=== PATIENT | female | born 1980 | race African-American/Black ===

== ENCOUNTER 2016-05-02 10:56 | Emergency (ER) | payer OTHER ==
[~2016-05-02 10:56] MED LIST: IBUPROFEN800 MG PO; NYQUIL; TYLOX 5/500 CAP1 CAP PO
[2016-05-18] MEDS ORDERED: PHENERGAN25 M1 PO (06:31)
== END 2016-05-02 11:03 | disposition home or self-care (01) ==
LOC: CFTX 10:56
DX: B37.0 Candidal stomatitis (principal); Z87.891 Personal history of nicotine dependence
CPT/HCPCS: 99282

== ENCOUNTER 2016-05-07 21:33 | Observation (INO) | payer OTHER ==
--- NOTE | ~2016-05-07 | US84 ---
[id number] [facility] [address] [place], [place] [address] [id number] I MR#: [id number] Acc #: [id number] NAME: ADA JOHNSON : 1980 SEX: F STUDY DATE/TIME: 05/08/2016 9:46 UNIT: C2A ROOM: 227 STUDY DESCRIPTION: US LE Veins Complete Renato Stdy Attending Physician: Durga Ledbetter M.D. Ordering Physician: Suzanne Echeverria M.D. Primary Care Physician: No Primary Care Physician MEDICAL IMAGING REPORT This report is preliminary unless electronic signature is present EXAM Lower extremity venous ultrasound bilateral complete study 05/08/2016 HISTORY Bilateral leg pain, brain aneurysm surgery 04/12/2016, pain in legs ever since from knee down. No history of DVT, has been on blood thinners since surgery. TECHNIQUE Venous ultrasound examination of both lower extremities was performed using grayscale, spectral Doppler and color flow Doppler imaging. FINDINGS The examination is negative. There is no evidence of deep venous thrombus from the groin to the lower calf bilaterally. Visualized greater saphenous veins are also patent. IMPRESSION Negative examination. No evidence of lower extremity deep venous thrombosis. Dictated by... Samm Lomeli M.D. THIS IS AN ELECTRONICALLY VERIFIED REPORT Samm Lomeli M.D. at 05/09/2016 5:25 PM Shaq TD: 05/08/2016 16:01 JOB #: [id number] MEDICAL IMAGING REPORT COPY
--- NOTE | ~2016-05-07 | HP ---
Unit #: [id number] #: [id number] Patient: ADA JOHNSON [id number] [address] [place], [place] [address] [id number] I MR#: [id number] NAME: ADA JOHNSON. ROOM: 43239 Age: 36 Sex: F Admission Date: 05/08/2016 : 1980 Attending Physician: Suzanne Echeverria M.D. Primary Care Physician: No Primary Care Physician HISTORY AND PHYSICAL CHIEF COMPLAINT Symptomatic microcytic anemia. HISTORY This pleasant 36-year-old female, recently treated for a right internal carotid aneurysm on 04/12/2016 by transarterial transcatheter embolization, is admitted for symptomatic anemia. Again, the patient underwent a transarterial transcatheter embolization of her right internal carotid aneurysm at [facility] on 04/12/2016. She was afterwards placed on aspirin, Plavix and Decadron. She developed increasing headaches off the Decadron and the Decadron was restarted. Over the past three to four days she has been experiencing lower extremity swelling with discomfort in the lower extremities, left greater than right, along with complaints of arm pain. Notes increasing weakness and fatigue. She presents to this emergency department with a white blood count of 25 but she is taking Decadron, and denies fevers, sweats or chills. Also noted to have a hematocrit of 25.3 down from 29.8 10/2015. Microcytic indices. The patient does have heavy menstrual periods, her last menses was 04/09/2016. Has been straining a bit at stool and did notice a little bit of blood after wiping herself. She currently is heme negative in the ER. Plans are to admit the patient due to increasing weakness, fatigue with worsening anemia. PAST MEDICAL HISTORY 1. 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 Patient underwent transarterial transcatheter embolization of her right internal carotid aneurysm 04/12/2016 at [facility]. 2. Headaches. 3. GERD. 4. BTL. ALLERGIES No known drug allergies. HOME MEDICATIONS 1. Decadron - I believe patient takes 2 mg, three tablets twice a day. 2. Plavix daily. 3. Aspirin daily. 4. P.r.n. Phenergan. 5. Protonix daily. 6. Nystatin swish and swallow, recently started for thrush. Unit #: [id number] #: [id number] Patient: ADA JOHNSON FAMILY HISTORY Aneurysms, and gastric CA. SOCIAL HISTORY The patient lives with her children. She is accompanied by her mother and boyfriend. She no longer smokes, seldom drinks alcohol. REVIEW OF SYSTEMS Notable for chronic headaches, pain in the arms and legs, aneurysm treated please see above details, GERD, right third nerve palsy, fatigue, weakness. All other systems were reviewed and are negative. PHYSICAL EXAMINATION GENERAL APPEARANCE: Pleasant, mildly obese female who currently is in no acute distress. VITAL SIGNS: Temperature 97.5, pulse 99, respirations 18, blood pressure 111/65, O2 saturation 100% on room air. HEENT: The patient's right pupil is dilated compared to the left. She has ptosis on the right and is unable to abduct or adduct the right eye. Pharynx is benign. NECK: Supple without adenopathy or thyromegaly. CHEST: Clear. CARDIAC: Normal S1 and S2 without S3, S4 or murmur. ABDOMEN: Bowel sounds are present. No hepatosplenomegaly, tenderness or masses. EXTREMITIES: Without clubbing, cyanosis or edema. Pedal pulses are present. No splinter hemorrhages noted over the fingernail beds. Negative Homans sign. RECTAL EXAMINATION: Heme negative in the ER. NEUROLOGIC EXAM: The patient is awake, alert, oriented. Her cranial nerves reveal a third nerve palsy. She has equal strength throughout. DIAGNOSTIC STUDIES LABORATORY: Admission labs - hematocrit is 25.3, down from a hematocrit of 29.8 last year. White blood count is 25.9, MCV is 77.6. Cardiac markers are negative. Coags are normal. SMA-12 - glucose 129, BUN 29, sodium 133, chloride is 99, calcium 7.9, albumin is 2.9. Urinalysis - positive nitrates with 2-5 white cells and 4+ bacteria. Only occasional squamous epithelial cell noted. IMAGING: CT scan - no acute disease. Soft tissue mass versus large aneurysm occluded by previous stent. Likely, this represents patient's treated aneurysm. This is in the right middle cranial fossa abutting the cavernous sinus. CARDIOVASCULAR: EKG - normal sinus rhythm, rate 98, normal appearing. ASSESSMENT 1. Symptomatic microcytic anemia, likely related to heavy menstrual periods while on aspirin and Plavix. Patient currently is heme negative on rectal exam. 2. Aneurysm which was treated with transarterial transcatheter embolization Patient has a third nerve palsy and headaches related to a previous aneurysm, currently is taking Decadron, Plavix and Unit #: [id number] #: [id number] Patient: ADA JOHNSON aspirin. 3. Generalized myalgias. 4. Gastroesophageal reflux disease. 5. Leukocytosis, likely related to Decadron. Patient could have a urinary tract infection. PLANS 1. Anemia workup. 2. Transfuse one unit of packed red blood cells. 3. One dose of Rocephin pending urine C and S. 4. Obtain CPK and procalcitonin level along with blood cultures. 5. Venous Dopplers of the legs. 6. SCDS for DVT prophylaxis. Dictated by Suzanne Echeverria M.D. AML/df TD: 05/08/2016 05:13 JOB #: [id number] CC: U L [facility] HISTORY AND PHYSICAL X Suzanne Echeverria MD HISTORY AND PHYSICAL
--- NOTE | ~2016-05-07 | DS ---
Unit #: [id number] #: [id number] Patient: ADA JOHNSON [id number] [address] [place], [place] [address] [id number] MR#: [id number] NAME: ADA JOHNSON. ROOM: 227 Age: 36 Sex: F Admission Date: 05/08/2016 : 1980 Discharge Date: 05/08/2016 Attending Physician: Durga Ledbetter M.D. Primary Care Physician: No Primary Care Physician DISCHARGE SUMMARY DISCHARGE DIAGNOSES 1. Symptomatic anemia status post blood transfusion of 2 units of packed red blood cells. 2. Iron deficiency anemia. Will be recommending to start iron tablet twice daily. 3. Brain aneurysm with recent transarterial transcatheter embolization of the right internal carotid at [facility] on 04/12/16. She will follow up with neurologist next week. 4. Generalized malaise. 5. Gastroesophageal reflux disease. 6. Elevated white blood count without fever, on Decadron. 7. Urinary tract infection. Urine culture is pending. I will follow up with this to ensure Omnicef will be able to cover it. CONSULTANTS None. PROCEDURES None. DIAGNOSTIC STUDIES IMAGING: Head CT without contrast. Impression - No clearly acute findings in the brain. Soft tissue mass in the middle cranial fossa on the right abutting the cavernous sinus may reflect a large aneurysm that has been excluded by a cavernous ICA stent on the right side. This lesion is nonspecific in the absence of more a recent contrast-enhanced comparison. This could reflect a true soft tissue mass such as a meningioma. Comparison with history and any outside imaging recommended. LABS: The patient's labs today consist of BMP with glucose of 179, BUN 29, creatinine 0.8, sodium 133, potassium 4.9, chloride 99, CO2 26, calcium 7.9, total protein 5, albumin 2.9, total bilirubin 0.4, AST 18, ALT 30, alkaline phosphatase 38. CK is 30. BNP is 72. CBC with WBC of 27.6, RBC 3.79, hemoglobin 9.1, hematocrit 29.2, MCV 77, MCH 23.9, MCHC 31.3, RDW 19.3, platelets 363, MPV 7.2. HOSPITAL COURSE The patient is a pleasant 36-year-old female recently treated for right internal carotid aneurysm on 04/12/16 by transarterial transcatheter embolization at [facility]. She was started on aspirin, Plavix and Decadron after that. She had developed increasing headache off the Decadron. Decadron was restarted. Over the past 3-4 days she has been experiencing lower extremity swelling with discomfort in the lower extremities, left greater than right, along with complaints of arm pain, Unit #: [id number] #: [id number] Patient: ADA JOHNSON as well. The patient has noticed increased weakness and fatigue. She was brought to the emergency department where she was found to have a white blood count of 25,000. Denies diarrhea. Again, she has taken Decadron. She denies fevers, chills or sweats. Workup in the emergency department included hematocrit that was 25.3 with microcytic indices. The patient does have heavy menstrual cycles, and her last menses was 04/09/16. She has been straining a bit at stool and did notice a little bit of blood after wiping. In the emergency department, heme was negative. The patient was admitted for increasing weakness and fatigue, likely due to worsening of the anemia. The patient received transfusion of 2 units of packed red blood cells and tells me that her generalized weakness has improved, but the swelling in her arms and legs, although improved, is still there. The patient tells me that her mother has sickle cell trait, but no one in the family has sickle cell anemia. I called hematology, who tells me that the peripheral the final evidence of sickle cell. I told the patient that, therefore, sickle cell crisis is less of a concern, although with her positive family history of sickle cell trait, the patient ought to refer to her primary care physician to do a complete sickle cell screening. She voiced understanding. The patient, at this time, is stable to be discharged. DISCHARGE FOLLOWUP She does have a followup appointment with her primary care physician and neurology next week; she tells me the 13 and 14. I had stressed that she keep this followup appointment, and she can have a repeat CBC there. DISCHARGE CONDITION Stable. DISCHARGE DIET Resume heart healthy diet. ACTIVITIES Resume activities as was prior to hospitalization with ambulating every day. DISCHARGE MEDICATIONS 1. Dexamethasone 6 mg orally b.i.d. as was prior hospitalization. 2. Aspirin 325 mg orally daily. 3. Hydrocodone with acetaminophen 7.5/300 mg 1 tablet q.6 hours as needed for pain. 4. Plavix 75 mg orally daily. 5. Iron supplement 1 tablet b.i.d. 6. Stool softener orally daily. 7. I am also prescribing Omnicef 300 mg orally b.i.d. Dictated by... Pat Pillai PA-C for Anna Thompson/melissa TD: 05/10/2016 08:13 JOB #: [id number] Unit #: [id number] #: [id number] Patient: STACEY JOHNSONLISA Mendenhall DISCHARGE SUMMARY X X DISCHARGE SUMMARY
--- NOTE | ~2016-05-07 | CT71 ---
[facility] A Service of [facility] & [facility] RADIOLOGY TEXT RESULTS PATIENT: ADA JOHNSON LOCATION: C2A 227- : [birth year] UNIT #: [id number] AGE: [address]: Durga Ledbetter MD SEX: F ORDER DR: [id number] [facility] [address] [place], [place] [address] [id number] I MR#: [id number] Acc #: [id number] NAME: ADA JOHNSON. : 1980 SEX: F STUDY DATE/TIME: 05/08/2016 UNIT: C2A ROOM: 227 STUDY DESCRIPTION: CT Head Wo Contrast Attending Physician: Durga Ledbetter M.D. Ordering Physician: Isacc Hunter M.D. Primary Care Physician: Primary Care Physician No MEDICAL IMAGING REPORT This report is preliminary unless electronic signature is present EXAM Head CT on 05/07 at 22:58 INDICATIONS Weakness that started yesterday which is generalized. Patient had brain surgery [address] exam was performed with one or more of the following radiation dose reduction techniques: automatic exposure control, adjustment of mA and/or kV according to patient size, and iterative reconstruction. FINDINGS Axial images were obtained from the base to the vertex without contrast. Comparison is made with 12/02/2087. There is a stent in the right cavernous carotid artery. No skull fractures are seen. There is a 1.9 x 2.1 cm mass in the middle cranial fossa on the right abutting the cavernous sinus. This is presumably an aneurysm that has been excluded by the above-mentioned stent. This is nonspecific. It could also reflect a soft tissue mass such as a meningioma. Comparison with history of outside prior imaging is recommended. This could be followed up with contrast-enhanced MRI or CT if needed. Ventricular size and configuration are normal. There is no evidence of acute infarct or hemorrhage. IMPRESSION No clearly acute findings in the brain. Soft tissue mass in the middle cranial fossa on the right abutting the cavernous sinus may reflect a large aneurysm that has been excluded by a cavernous ICA stent on the right side. This lesion is nonspecific in the absence of more recent contrast enhanced comparisons. This could also reflect a true soft tissue STS. [facility] A Service of [facility] & [facility] RADIOLOGY TEXT RESULTS PATIENT: ADA JOHNSON LOCATION: A 227-01 : [birth year] UNIT #: [id number] AGE: [address]: Durga Ledbetter MD SEX: F ORDER DR: mass such as a meningioma. Comparison with history and any outside imaging recommended. This could be further characterized with contrast enhanced head CT or MRI if deemed clinically appropriate. Dictated by... Indra King Jr., M.D. THIS IS AN ELECTRONICALLY VERIFIED REPORT Indra King Jr., M.D. at 05/08/2016 12:35 PM JUDY/russell TD: 05/08/2016 11:51 JOB #: [id number] MEDICAL IMAGING REPORT COPY
--- NOTE | ~2016-05-07 | EKG ---
PATIENT: ADA JOHNSON UNIT #: [id number] Ventricular Rate: 98 BPM Atrial Rate: 98 BPM P-R Interval: 130 ms QRS Duration: 66 ms Q-T Interval: 320 ms QTC Calculation(Bezet): 408 ms P [place]: 55 degrees Calculated R [place]: 21 degrees Calculated T [place]: 29 degrees Diagnosis Line: Normal sinus rhythm Diagnosis Line: Normal ECG Diagnosis Line: No previous ECGs available Diagnosis Line: Confirmed by WILFREDO KIM MD ([id number]) on Diagnosis Line: 05/09/2016 4:05:48 PM INTERPRETING MD: JUDY PIERRE
[2016-05-07 21:22] LABS: BASOPHIL% 0.1 % (0-2.5); HEMATOCRIT 25.3 % (35.0-45.0); HEMOGLOBIN 7.5 gm/dL (12.0-16.0); LYMPHOCYTE# 1.7 X10e3 (1.0-3.5); LYMPHOCYTE% 6.6 % (17.0-45.0); MEAN CELL VOLUME 77.6 FL (83-96); MEAN CORPUSCULAR HEMOGLOBIN 23.1 PG (28-34); MEAN CORPUSCULAR HGB CONC 29.8 g/dL (30-36); MONOCYTE# 1.2 X10e3 (0-1.0); MONOCYTE% 4.4 % (3.0-12.0); NEUTROPHIL% 88.9 % (40-75); PLATELET COUNT 367 X10e3 (140-420); RED BLOOD COUNT 3.26 X10e (3.90-5.30); RED CELL DISTRIBUTION WIDTH 19.6 % (11.0-15.5); WHITE BLOOD COUNT 25.9 X10e3 (4.0-10.5)
[2016-05-07 21:23] LABS: DIFF IND YES
[2016-05-07 21:44] LABS: BLOOD UREA NITROGEN 29 mg/dL (9-23); BUN/CREATININE RATIO 36.25; CALCIUM SERUM 7.9 mg/dL (8.4-10.2); CARBON DIOXIDE 26 mmol/L (22-31); CHLORIDE 99 mmol/L (100-111); CPK (CREATINE PHOSPHOKINASE) 26 IU/L (26-140); CREATININE SERUM 0.8 mg/dL (0.6-1.4); GLOM FILT RATE Estimated ABOVE60 mL/min (>60); GLUCOSE FASTING 129 mg/dL (70-110); POTASSIUM 4.7 mmol/L (3.5-5.1); SODIUM 133 mmol/L (135-145)
[2016-05-07 21:48] LABS: URINE SOURCE CLEAN CATCH
[2016-05-07 22:04] LABS: URINE APPEARANCE CLEAR; URINE BILIRUBIN NEG (NEG); URINE BLOOD 1+ (NEG); URINE COLOR YELLOW; URINE GLUCOSE NEG (NEG); URINE KETONE TRACE (NEG); URINE LEUKOCYTE ESTERASE NEG (NEG); URINE NITRATE POS (NEG); URINE PROTEIN NEG (NEG); URINE SPECIFIC GRAVITY 1.032 (1.003-1.035); URINE UROBILINOGEN 0.2 MG/DL (NEG)
[2016-05-07 22:07] LABS: CULTURE INDICATED? YES; URBCS1 AUWI 0-2 /[HPF] (0-2); URINE BACTERIA AUWI 4+ (NEGATIVE); URINE SQUAMOUS EPITHELIAL CELL OCC /[HPF]
[2016-05-07 22:43] LABS: INR 1.1; PROTHROMBIN TIME (PATIENT) 11.2 SECONDS (9.6-11.5)
[2016-05-07 22:55] LABS: HYPERSEGMENTED POLYS PRESENT; HYPOCHROMIA SL; MICROCYTOSIS SL; PLATELET ESTIMATE NORMAL (NORMAL); SMUDGE CELLS 3 /100
[2016-05-07 23:04] LABS: PARTIAL THROMBOPLASTIN TIME 20.3 SECONDS (23.5-31.3)
[2016-05-07 23:23] LABS: ALBUMIN SERUM 2.9 g/dL (3.5-5.0); BILIRUBIN, DIRECT 0.1 mg/dL (0.0-0.2); BILIRUBIN,INDIRECT 0.3 mg/dL (0.0-0.9); BILIRUBIN,TOTAL 0.4 mg/dL (0.2-2.0)
[2016-05-08 00:02] LABS: POC - CKMB <1.0 ng/mL (0.0-7.9); POC - TROPONIN <0.05 ng/mL (<=0.05)
[2016-05-08 07:13] LABS: AMPHETAMINE NEG (NEG); BARBITURATES NEG (NEG); BENZODIAZEPINES NEG (NEG); COCAINE NEG (NEG); MARIJUANA POS (NEG); OPIATES POS (NEG); TRICYCLIC ANTIDEPRESSANTS NEG (NEG); U METHADONE NEG (NEG)
[2016-05-08 08:44] LABS: BASOPHIL% 0.1 % (0-2.5); HEMATOCRIT 29.2 % (35.0-45.0); HEMOGLOBIN 9.1 gm/dL (12.0-16.0); LYMPHOCYTE# 1.8 X10e3 (1.0-3.5); LYMPHOCYTE% 6.7 % (17.0-45.0); MEAN CORPUSCULAR HEMOGLOBIN 23.9 PG (28-34); MEAN CORPUSCULAR HGB CONC 31.1 g/dL (30-36); MEAN PLATELET VOLUME 7.2 FL (6.5-11.5); MONOCYTE# 0.9 X10e3 (0-1.0); MONOCYTE% 3.4 % (3.0-12.0); NEUTROPHIL# 24.8 X10e3 (1.5-7.1); NEUTROPHIL% 89.8 % (40-75); PLATELET COUNT 363 X10e3 (140-420); RED BLOOD COUNT 3.79 X10e (3.90-5.30); RED CELL DISTRIBUTION WIDTH 19.3 % (11.0-15.5); WHITE BLOOD COUNT 27.6 X10e3 (4.0-10.5)
[2016-05-08 08:53] LABS: DIFF IND NO
[2016-05-08 09:08] LABS: PROCALCITONIN 0.05 NG/ML
[2016-05-08 09:13] LABS: FOLATE (FOLIC ACID) 5.9 ng/mL (>5.8)
[2016-05-08] MEDS ORDERED: CLOPIDOGREL75 MG PO (10:01)
[2016-05-08] MEDS ORDERED: LITE COAT ASPI325 M1 PO (10:02)
[2016-05-08] MEDS ORDERED: DEXAMETHASONE6 MG PO (10:03)
[2016-05-08] MEDS ORDERED: XODOL 7.5-300 T1 TAB PO (10:04)
[2016-05-08] MEDS ORDERED: IRON325 ( 651 PO (14:47)
[2016-05-08] MEDS ORDERED: OMNICEF300 M1 PO (14:53)
[2016-05-08] MEDS ORDERED: COLACE PO (14:53)
[2016-05-18] MEDS ORDERED: PHENERGAN25 M1 PO (06:31)
== END 2016-05-08 15:26 | disposition home or self-care (01) ==
LOC: CED 21:33 → CEDOF 05-08 01:20 → C2A 05-08 08:04
PROVIDERS: Emergency Medicine
PROC: 30233N1 Transfusion of Nonautologous Red Blood Cells into Peripheral Vein, Percutaneous Approach (ICD-10-PCS; principal; 2016-05-08)
DX: D50.9 Iron deficiency anemia, unspecified (principal); I67.1 Cerebral aneurysm, nonruptured; R53.81 Other malaise; D72.829 Elevated white blood cell count, unspecified; N39.0 Urinary tract infection, site not specified; M79.89 Other specified soft tissue disorders; M79.603 Pain in arm, unspecified; R51 Headache; H49.00 Third [oculomotor] nerve palsy, unspecified eye; K21.9 Gastro-esophageal reflux disease without esophagitis; N92.0 Excessive and frequent menstruation with regular cycle; Z79.82 Long term (current) use of aspirin; Z79.01 Long term (current) use of anticoagulants; Z82.49 Family history of ischemic heart disease and other diseases of the circulatory system; Z80.0 Family history of malignant neoplasm of digestive organs
CPT/HCPCS: 36415; 36430; 70450; 80048; 80076; 80307; 81003; 82308; 82550; 82553; 82607; 82728; 82746; 83540; 83550; 83880; 84484; 84703; 85025; 85044; 85610; 85730; 86850; 86900; 86901; 86923; 87040; 87086; 87088; 87186; 93005; 93970; 96374; 99285; G0378; J0696; P9016

== ENCOUNTER 2016-05-18 07:32 | Emergency (ER) | payer OTHER ==
[~2016-05-18 07:32] MED LIST changes: +CLOPIDOGREL75 MG PO; +COLACE PO; +DEXAMETHASONE6 MG PO; +IRON325 ( 651 PO; +LITE COAT ASPI325 M1 PO; +OMNICEF300 M1 PO; +PHENERGAN25 M1 PO; +XODOL 7.5-300 T1 TAB PO
[2016-05-18 08:16] LABS: BASOPHIL# 0.1 X10e3 (0-0.3); BASOPHIL% 0.3 % (0-2.5); DIFF IND YES; HEMATOCRIT 28.1 % (35.0-45.0); HEMOGLOBIN 8.7 gm/dL (12.0-16.0); LYMPHOCYTE# 0.7 X10e3 (1.0-3.5); LYMPHOCYTE% 4.3 % (17.0-45.0); MEAN CELL VOLUME 79.7 FL (83-96); MEAN CORPUSCULAR HEMOGLOBIN 24.5 PG (28-34); MEAN CORPUSCULAR HGB CONC 30.8 g/dL (30-36); MEAN PLATELET VOLUME 7.2 FL (6.5-11.5); MONOCYTE# 0.7 X10e3 (0-1.0); MONOCYTE% 4.1 % (3.0-12.0); NEUTROPHIL# 14.9 X10e3 (1.5-7.1); NEUTROPHIL% 91.3 % (40-75); PLATELET COUNT 236 X10e3 (140-420); RED BLOOD COUNT 3.53 X10e (3.90-5.30); RED CELL DISTRIBUTION WIDTH 20.9 % (11.0-15.5); WHITE BLOOD COUNT 16.3 X10e3 (4.0-10.5)
[2016-05-18 08:31] LABS: PLATELET ESTIMATE NORMAL (NORMAL)
[2016-05-18 08:32] LABS: ANISOCYTOSIS MOD; HYPOCHROMIA MOD; POIKILOCYTOSIS SL; SCHISTOCYTES PRESENT
[2016-05-18 08:35] LABS: ALBUMIN SERUM 3.3 g/dL (3.5-5.0); ALKALINE PHOSPHATASE 57 U/L (32-92); ALT (SGPT) 40 U/L (10-40); AST (SGOT) 18 U/L (10-42); BILIRUBIN, DIRECT 0.1 mg/dL (0.0-0.2); BILIRUBIN,INDIRECT 0.2 mg/dL (0.0-0.9); BILIRUBIN,TOTAL 0.3 mg/dL (0.2-2.0); BLOOD UREA NITROGEN 21 mg/dL (9-23); CALCIUM SERUM 8.3 mg/dL (8.4-10.2); CARBON DIOXIDE 29 mmol/L (22-31); CHLORIDE 104 mmol/L (100-111); CREATININE SERUM 0.6 mg/dL (0.6-1.4); GLOM FILT RATE Estimated ABOVE60 mL/min (>60); GLUCOSE FASTING 117 mg/dL (70-110); POTASSIUM 4.2 mmol/L (3.5-5.1); PROTEIN TOTAL SERUM 5.8 g/dL (6.0-8.3); SODIUM 137 mmol/L (135-145)
== END 2016-05-18 09:42 | disposition home or self-care (01) ==
LOC: CED 07:32
PROVIDERS: Emergency Medicine
DX: B37.9 Candidiasis, unspecified (principal); Z79.82 Long term (current) use of aspirin; Z79.899 Other long term (current) drug therapy
CPT/HCPCS: 36415; 80048; 80076; 85025; 99283